=== PATIENT | male | born 1955 | race Two or more races ===

== ENCOUNTER 2020-09-03 05:47 | Emergency (ER) | payer MEDICAID, MEDICARE ==
[~2020-09-03] VITALS: Ht 172.7 cm; Wt 86.5 kg
--- NOTE | 2020-09-03 05:51 | NUR ---
NO ANSWER WHEN CALLED FOR TRIAGE
--- NOTE | 2020-09-03 06:10 | NUR ---
lithuanian speaking male, cc of back pain for 14 days, states he had a mri of his full spine with "big problems" and no support at home.
[2020-09-03] MEDS ORDERED: METHOCARBAMOL 750 MG TABLET ONE (06:17)
[2020-09-03] MEDS ORDERED: KETOROLAC 30 MG/1 ML ONE (06:17)
[2020-09-03] MEDS ORDERED: METHOCARBAMOL 750 MG TABLET PO ONE (06:30)
[2020-09-03] MEDS ORDERED: KETOROLAC 30 MG/1 ML IM ONE (06:30)
[2020-09-03] MEDS ORDERED: GABAPENTIN 300 MG CAPSULE PO ONE (06:30)
[2020-09-03] MEDS ORDERED: GABAPENTIN 300 MG CAPSULE ONE (06:31)
[2020-09-03 06:36] VITALS: BP 109/76
--- NOTE | 2020-09-03 06:51 | NUR ---
REPORT FROM [facility]
[2020-09-03] MEDS ORDERED: DEXAMETHASONE 4 MG TABLET ONE (07:38)
--- NOTE | 2020-09-03 07:55 | NUR ---
Patient/Caregiver given discharge instructions and they have confirmed that they understand the instructions. Patient ambulatory with steady gait.
[2020-09-03] MEDS ORDERED: DEXAMETHASONE 4 MG TABLET PO ONE (08:00)
== END 2020-09-03 07:57 ==
LOC: ED 06:49
DX: S39.012A Strain of muscle, fascia and tendon of lower back, initial encounter (principal); W18.39XA Other fall on same level, initial encounter; Y93.89 Activity, other specified; Y92.89 Other specified places as the place of occurrence of the external cause; Y99.8 Other external cause status
CPT/HCPCS: 72131; 96372; 99284; J1885

== ENCOUNTER 2020-10-14 05:34 | Emergency (ER) | payer MEDICARE ==
[~2020-10-14] VITALS: Ht 170.2 cm; Wt 84.0 kg
[2020-10-14] MEDS ORDERED: KETOROLAC 30 MG/1 ML IM ONE (06:00)
[2020-10-14] MEDS ORDERED: KETOROLAC 30 MG/1 ML ONE (06:25)
[2020-10-14] MEDS ORDERED: KETOROLAC 30 MG/1 ML IVPush ONE ×2 (06:30)
[2020-10-14 06:33] LABS: BASOPHILS % (AUTO) 1 % (0-1); EOSINOPHILS % (AUTO) 5 % (1-7); LYMPHOCYTES % (AUTO) 44 % (22-44); MEAN CORPUSCULAR HEMOGLOBIN 33.3 pg (27.5-34.5); MEAN CORPUSCULAR HGB CONC 34.5 g/dL (33.2-36.2); MEAN PLATELET VOLUME 8.1 fL (7.4-10.4); MONOCYTES % (AUTO) 8 % (2-9); NEUTROPHILS % (AUTO) 42 % (42-75); PLATELET COUNT 168 x10^3/uL (130-400); RED BLOOD COUNT 4.75 x10^6/uL (4.38-5.82); RED CELL DISTRIBUTION WIDTH 13.2 % (9.4-14.8)
[2020-10-14 06:46] LABS: ALBUMIN 3.5 g/dL (3.4-5.0); ANION GAP 5 mmol/L (5-15); CALCIUM 8.8 mg/dL (8.5-10.1); CHLORIDE 109 mmol/L (98-107)
[2020-10-14 06:47] LABS: MD NO
[2020-10-14 06:52] LABS: CREATININE 1.15 mg/dL (0.7-1.3); TROPONIN I < 0.015 ng/mL (0.000-0.045)
[2020-10-14 06:58] VITALS: BP 118/83
== END 2020-10-14 07:30 | disposition home or self-care (01) ==
LOC: ED 07:15
DX: S29.011A Strain of muscle and tendon of front wall of thorax, initial encounter (principal); R94.31 Abnormal electrocardiogram [ECG] [EKG]; X58.XXXA Exposure to other specified factors, initial encounter; Y93.89 Activity, other specified; Y92.89 Other specified places as the place of occurrence of the external cause; Y99.8 Other external cause status
CPT/HCPCS: 36415; 71045; 80048; 82040; 84484; 85025; 93005; 96374; 99285; J1885

== ENCOUNTER 2020-11-19 00:51 | Emergency (ER) | payer MEDICARE ==
[~2020-11-19] VITALS: Ht 170.2 cm; Wt 84.6 kg
[2020-11-19] MEDS ORDERED: SODIUM CHLORIDE 0.9% 1,000ML IVBOLUS ONE (01:30)
[2020-11-19] MEDS ORDERED: DIPHENHYDRAMINE 50 MG/ML, 1ML IVPush ONE (01:30)
[2020-11-19] MEDS ORDERED: MORPHINE SULFATE 4 MG/ML, 1ML IVPush PRN (01:30)
[2020-11-19] MEDS ORDERED: SODIUM CHLORIDE FLUSH 10ML SYR IVF ONE (01:30)
[2020-11-19] MEDS ORDERED: PROCHLORPERAZINE 5 MG/ML, 2ML IVPush ONE (01:30)
[2020-11-19] MEDS ORDERED: KETOROLAC 30 MG/1 ML IVPush ONE (01:30)
[2020-11-19 01:45] LABS: BASOPHILS % (AUTO) 1 % (0-1); EOSINOPHILS % (AUTO) 4 % (1-7); LYMPHOCYTES % (AUTO) 41 % (22-44); MEAN CORPUSCULAR HEMOGLOBIN 33.1 pg (27.5-34.5); MEAN CORPUSCULAR HGB CONC 34.5 g/dL (33.2-36.2); MEAN PLATELET VOLUME 7.6 fL (7.4-10.4); MONOCYTES % (AUTO) 8 % (2-9); NEUTROPHILS % (AUTO) 46 % (42-75); PLATELET COUNT 196 x10^3/uL (130-400); RED BLOOD COUNT 4.73 x10^6/uL (4.38-5.82)
[2020-11-19 01:46] LABS: MD NO
[2020-11-19] MEDS ORDERED: PROCHLORPERAZINE 5 MG/ML, 2ML ONE (01:50)
[2020-11-19] MEDS ORDERED: DIPHENHYDRAMINE 50 MG/ML, 1ML ONE (01:50)
[2020-11-19] MEDS ORDERED: KETOROLAC 30 MG/1 ML ONE (01:50)
[2020-11-19 01:57] LABS: ALANINE AMINOTRANSFERASE 36 U/L (12-78); ALBUMIN 3.5 g/dL (3.4-5.0); ANION GAP 6 mmol/L (5-15); CALCIUM 8.8 mg/dL (8.5-10.1); CHLORIDE 108 mmol/L (98-107); CREATININE 1.13 mg/dL (0.7-1.3)
[2020-11-19 01:59] LABS: ALKALINE PHOSPHATASE 112 U/L (45-117); BILIRUBIN,TOTAL 0.5 mg/dL (0.2-1.0); TOTAL PROTEIN 6.9 g/dL (6.4-8.2)
--- NOTE | 2020-11-19 02:00 | NUR ---
PT SITTING UPRIGHT ON GURNEY, NAD, VSS. PT PROVIDED WARM BLANKET. PT DENIES ANY ADDITIONAL NEEDS AT THIS TIME. MEDICATION ADMIN COMPLETE PER EMAR. CONTINUOUS PULSE OX AND CARDIAC MONITORING IN PLACE.
[2020-11-19] MEDS ORDERED: OMNIPAQUE 350 MG/ML, 100ML BOTTLE ONE (02:31)
--- NOTE | 2020-11-19 02:39 | NUR ---
PT REPORTS SIGNIFICANT DECREASE IN PAIN FOLLOWING COMMUNITY SERVICE ORGANIZATION DIRECTOR. LIGHTS TURNED DOWN AND PER REPOSITIONED PER REQUEST.
--- NOTE | 2020-11-19 03:03 | NUR ---
PT SUPINE ON GURNEY, NAD, VSS. PT DENIES ANY NEEDS AND REPORTS 2/10 [place] AT THIS TIME. CALL LIGHT AND PERSONAL BELONGINGS IN REACH.
--- NOTE | 2020-11-19 04:08 | NUR ---
POSITION CLASSIFIER [id number]. ERP AT BEDSIDE TO DISCUSS PLAN OF CARE AND D/C PLAN.
[2020-11-19 04:09] VITALS: BP 119/88
== END 2020-11-19 04:22 | disposition home or self-care (01) ==
LOC: ED 01:27
DX: G43.C0 Periodic headache syndromes in child or adult, not intractable (principal); M54.2 Cervicalgia; R11.2 Nausea with vomiting, unspecified; Z90.89 Acquired absence of other organs
CPT/HCPCS: 36415; 70450; 70496; 70498; 80053; 85025; 96361; 96374; 96375; 99285; J0780; J1200; J1885; J7030; Q9967